=== PATIENT | female | born 1955 | race Caucasian/White ===

== ENCOUNTER 2019-02-05 06:25 | Day surgery (SDC) | payer OTHER ==
[2019-02-05] MEDS ORDERED: Ringers Lactate 1,000 ML IV ONE (07:01)
[2019-02-05] MEDS ORDERED: LIDOCAINE 1% W/EPI 1:100,000 MDV 20 ML VIAL ONE (07:22)
[2019-02-05] MEDS ORDERED: NA CHLORIDE 0.9% 1,000 ML ONE (07:24)
[2019-02-05] MEDS ORDERED: PROPOFOL 200 MG/20 ML VIAL IV ONE (07:33)
[2019-02-05] MEDS ORDERED: LIDOCAINE 2% MPF 5 ML VIAL ONE (07:34)
[2019-02-05] MEDS ORDERED: MIDAZOLAM HCL 2 MG/2 ML INJ ONE (07:34)
[2019-02-05] MEDS ORDERED: FENTANYL CITR 100 MCG/2 ML ONE (07:34)
[2019-02-05] MEDS ORDERED: ONDANSETRON 4 MG/2 ML VIAL ONE (07:35)
[2019-02-05] MEDS ORDERED: GLYCOPYRROLATE 0.2 MG/ML SYR ONE (08:18)
[2019-02-05] MEDS ORDERED: KETOROLAC 30 MG/ML INJ ONE (08:19)
--- NOTE | 2019-02-05 19:04 | OP ---
Date of Procedure: 02/05/2019 Surgeon: Carol Jurado MD Preoperative Diagnosis: Recurrent postmenopausal bleeding. Postoperative Diagnosis: Recurrent postmenopausal bleeding. Procedure Performed: Hysteroscopy, dilation and curettage, polypectomy with Symphion. Anesthesia: General with LMA. Specimens: Endometrial curettings. Complications: No complications. Drains: No drains. Condition: Stable. Findings: Posterior wall lower endometrial cavity thickened, polypoid and this was sampled adequatel y with the help of the Symphion, set pressure at 85 mmHg, MAP 86, and no fluid deficit. Normal salin e used. After informed consent was verified, she was taken back to the OR, placed in a supine fashion on the operating table. After general anesthesia was given, she was placed in a dorsal lithotomy position. Prep x3 with Betadine was done. Anterior lip grasped with 2 Allis clamps and a SlimLine diagnostic hysteroscope was introduced into the uterine cavity. After visualizing the thickening in the posteri or wall towards the lower part of the canal, the scope was removed and Symphion was primed and insert ed into the uterine cavity after dilating to 16-Palauan and I was able to visualize and use the dissec tion device to cut the polypoid tissue as well as the rest of the endometrial cavity was well sampled . The scope was removed. After thorough irrigation, the fluid deficit was close to 0. The patient was recovered from anesthesia in the OR and taken to the PACU in stable condition after instrument, needle, and sponge counts were correct. She was given 15 mg of Toradol for postop pain control. BRITTANY/AMISH Voice ID: [id number] Report ID: [id number]
== END 2019-02-05 09:38 | disposition home or self-care (01) ==
LOC: OR 06:25
PROVIDERS: ATTEND Obstetrics & Gynecology
PROC: 0UDB8ZX Extraction of Endometrium, Via Natural or Artificial Opening Endoscopic, Diagnostic (ICD-10-PCS; 2019-02-05)
PROC: 0UB97ZX Excision of Uterus, Via Natural or Artificial Opening, Diagnostic (ICD-10-PCS; principal; 2019-02-05 07:30)
DX: N84.0 Polyp of corpus uteri (principal); N95.0 Postmenopausal bleeding; I10 Essential (primary) hypertension; F32.9 Major depressive disorder, single episode, unspecified; F41.9 Anxiety disorder, unspecified; Z79.899 Other long term (current) drug therapy
CPT/HCPCS: 88305; J2250; J2405; J2704; J3010; J7030